=== PATIENT | female | born 1965 | race Two or more races ===

== ENCOUNTER 2017-02-21 13:23 | Emergency (ER) | payer OTHER ==
[~2017-02-21] VITALS: Ht 157.5 cm; Wt 59.0 kg
[2017-02-21 13:50] VITALS: BP 118/78
[2017-02-21] MEDS ORDERED: LORazepam 1mg tab ORAL ONE (14:30)
[2017-02-21] MEDS ORDERED: TYLENOL EXTRA500 MG ORAL (14:50)
[2017-02-21 16:35] VITALS: BP 138/94
--- NOTE | 2017-02-21 19:23 | Emergency Room Report ---
History of Present Illness General Chief Complaint: Pain Source: Patient Present Illness HPI The patient is a 51-year-old female presenting for right knee pain. She states that she twisted the knee approximately 1 month prior and pain has continued. It is now 8/10 dull ache. Worse with movement. She denies falling. She denies other symptoms including Pain, fever, chills, numbness or tingling Allergies: Coded Allergies: PENICILLINS (Verified Allergy, Unknown, Hives, 02/21/17) Patient History Past Medical History: see triage record Pertinent Family History: none Reviewed Nursing Documentation: PMH: Agreed, PSxH: Agreed Nursing Documentation-PMH Past Medical History: No History, Except For Review of Systems All Other Systems: negative except mentioned in HPI Physical Exam Vital Signs Date Time Temp Pulse Resp B/P (MAP) Pulse Ox O2 Delivery O2 Flow Rate FiO2 02/21/17 13:14 98.4 100 14 118/78 97 Room Air Sp02 EP Interpretation: reviewed, normal General Appearance: no apparent distress, alert, GCS 15, non-toxic Head: normocephalic, atraumatic Eyes: bilateral eye normal inspection, bilateral eye PERRL ENT: hearing grossly normal, normal pharynx, no angioedema, normal voice Neck: full range of motion, supple/symm/no masses Musculoskeletal: back normal, gait/station normal, normal range of motion, no calf tenderness Neurologic: alert, oriented x3, responsive, motor strength/tone normal, sensory intact, speech normal Skin: normal color, no rash, warm/dry, well hydrated Procedures Splinting Splinting : Consent: Verbal Location: R knee Pre-Made Type: WILLIAM wrap Pre-Proc Neuro Vasc Exam: normal Post-Proc Neuro Vasc Exam: normal Patient Tolerated: Well Complications: None Medical Decision Making PA Attestation Dr. Fernandez is my supervising physician. Patient management was discussed with my supervising physician Diagnostic Impression: Primary Impression: Sprain, knee Qualified Codes: S83.91XA - Sprain of unspecified site of right knee, initial encounter ER Course The patient is a 51-year-old female presenting for right knee pain. Ddx considered include but not limited to sprain/strain, fracture, contusion Physical exam: Afebrile. No apparent distress Right knee: No deformity. No edema. No skin changes. Full active range of motion intact. No laxity William wrap to right knee is placed The patient will be discharged home with pain medication and will followup with primary doctor. ER precautions are given Last Vital Signs Date Time Temp Pulse Resp B/P (MAP) Pulse Ox O2 Delivery O2 Flow Rate FiO2 02/21/17 16:35 78 20 138/94 99 Room Air 02/21/17 15:27 98.4 Status: improved Disposition: HOME, SELF-CARE Condition: Improved Scripts Acetaminophen* (TYLENOL EXTRA STRENGTH*) 500 Mg Tablet 500 MG ORAL Q8H Y for Prn Headache/Temp > 101, #30 TAB 0 Refills Prov: TANIYA MIRANDA 02/21/17 Referrals: [facility] (PCP) Patient Instructions: Knee Pain Additional Instructions: I discussed my findings with the patient. All questions and concerns have been answered. Treatment and medication compliance have been addressed. I advised the patient that they need to follow up with PMD in 3-5 days. Return to ED if pain remains or worsens, numbness or tingling occurs, new rash is noticed, fever is noticed, or if needed for any reason. Patient verbalized understanding of discharge instructions. TANIYA MIRANDA Feb 21, 2017 19:23
== END 2017-02-21 16:37 | disposition home or self-care (01) ==
LOC: EDBD 13:23 → EMR 13:58
DX: S83.91XA Sprain of unspecified site of right knee, initial encounter (principal); X50.1XXA Overexertion from prolonged static or awkward postures, initial encounter; Y92.9 Unspecified place or not applicable; Z88.0 Allergy status to penicillin
CPT/HCPCS: 99283